=== PATIENT | male | born 1955 | race Caucasian/White ===

== ENCOUNTER 2018-11-24 21:10 | Emergency (ER) | payer SELFPAY ==
[2018-11-24] MEDS ORDERED: Tenecteplase 50 MG - STEMI KIT ONE ×2 (21:23→21:33)
[2018-11-24] MEDS ORDERED: Sodium Bicarb 50 MEQ/50 ML Abboject 8.4% SYRINGE ONE ×2 (21:27→21:29)
[2018-11-24] MEDS ORDERED: Sodium Bicarbonate 2.5 MEQ/5 ML VIAL ONE (21:28)
[2018-11-24] MEDS ORDERED: Sodium Bicarb 50 MEQ/50 ML VIAL ONE ×2 (21:29→21:31)
[2018-11-24 21:39] LABS: Base Excess-Venous -14.6 mmol/L (-2.0 to 3.0); Bicarbonate (HCO3v) 21.6 mmol/L (22.0-28.0); CO2 Tension (PvCO2) 124.1 mmHg (40.0-50.0); Calcium, Ionized 1.12 mmol/L (See Comments:); Chloride 110 mmol/L (98-107); Hemoglobin - Calc 13.3 g/dL (14.0-18.0); Potassium 4.3 mmol/L (3.5-5.1); Sodium 142 mmol/L (138-145); T. Carbon Dioxide 25.4 mmol/L (22.0-28.0); vO2 Saturation-calc 3.3 % (60.0-85.0)
[2018-11-24] MEDS ORDERED: Vasopressin 40 UNIT, Admixture Fee 1 EACH in Sodium Chloride 0.9% 100 ML IV SCH (21:45)
[2018-11-24 21:57] LABS: #Basophils 0.1 thou/uL (0.0-0.2); #Eosinphils 0.1 thou/uL (0.0-0.7); #Lymphocytes 2.7 thou/uL (1.20-3.40); #Monocytes 0.5 thou/uL (0.11-0.59); #Neutrophils 4.5 thou/uL (1.40-6.50); %Eosinophils 1.5 % (0.0-10.0); %Lymphocytes 33.9 % (21.0-51.0); %Monocytes 6.5 % (0.0-10.0); Hemoglobin 13.7 g/dL (14.0-18.0); Mean Corpuscular HGB CONC 31.9 g/dL (32.0-36.0); Mean Corpuscular Hemoglobin 29.7 pg (27.0-31.0); Mean Corpuscular Volume 93.3 fL (78.0-98.0); Mean Platelet Volume 8.6 fL (7.4-10.4); Platelet Count 143 thou/uL (130-400); RBC Distribution Width 12.6 % (11.5-14.5); RBC Morphology Normal; White Blood Cell (WBC) Count 7.9 thou/uL (4.8-10.8)
[2018-11-24 21:59] LABS: ALT (SGPT) 557 U/L (8-55); AST (SGOT) 344 U/L (5-34); Albumin 2.8 g/dL (3.4-4.8); Alkaline Phosphatase 65 U/L (40-150); Anion Gap 30 mmol/L (10-20); BUN (Urea Nitrogen) 15 mg/dL (8.4-25.7); Bilirubin, Total 0.5 mg/dL (0.2-1.2); Calc. Creatinine Clearance 0 mL/min (70-130); Calcium 8.1 mg/dL (7.8-10.44); Carbon Dioxide 16 mmol/L (23-31); Chloride 107 mmol/L (98-107); Estimated GFR-MDRD 46; Glucose 261 mg/dL (80-115); Potassium 4.5 mmol/L (3.5-5.1); Protein, Total 4.8 g/dL (5.8-8.1); Sodium 148 mmol/L (136-145)
[2018-11-24 22:21] LABS: CKMB 4.9 ng/mL (0-6.6)
--- NOTE | 2018-11-26 11:03 | PRG ---
DATE OF SERVICE: 11/24/2018 This is a phone conversation held with the emergency room physician. Mr. Sommer was a 63-year-old man, found unresponsive, [id number] arrest , was brought to the hospital, had been found to be asystole prior to arrival to the emergency room. The patient had an extensive attempt at resuscitation as it was outlined in the notes with multiple epinephrine boluses and an epinephrine infusion, also sodium bicarbonate was given. The patient was in pulseless electrical activity. I spoke with the emergency room physician last night. The patient was also severely acidotic with a very high lactate level and was unresponsive. Prognosis obviously looked grim. The emergency room physician was told that the patient would not be a candidate for emergency catheterization in the absence of any pulse and unresponsive state that appeared to be likely a futile exercise. The patient continued to deteriorate as was outlined in the chart, was never able to be clinically stabilized and in the emergency room as was documented in the notes. The emergency room physician made extensive efforts to resuscitate the patient, but these were not successful. The patient in the emergency room. The emergency room physician did indicate to me that if the patient stabilized , he would notify us if he became a candidate for interventional therapy, but unfortunately the patient as mentioned did not respond to extensive attempts at resuscitation and in the emergency room. Job ID: [id number] MTDD
== END 2018-11-24 21:48 | disposition expired ==
LOC: ERS 21:10 → EDBD 21:10 → ERS 21:48
DX: I46.9 Cardiac arrest, cause unspecified (principal); I21.3 ST elevation (STEMI) myocardial infarction of unspecified site
CPT/HCPCS: 36556; 80053; 82330; 82553; 82803; 83605; 84484; 85025; 92950; 93005; 96365; 96374; 96375; 96376; J3101; J3490